=== PATIENT | female | born 1955 | race Caucasian/White ===

== ENCOUNTER → 2018-10-18 | Outpatient (CLI) | payer BC ==
--- NOTE | 2018-10-20 12:55 | XCELERA REPORT ---
[address] [address] Lower Extremity Arterial Evaluation Name: ALLEN GALLARDO Age: 63 yrs Gender: Female : 1955 Patient Status: Outpatient Patient Location: Study Date: 10/18/2018 02:50 PM Procedure: A color flow and duplex scan of the lower extremity arteries was performed bilaterally with velocity and waveform anaylsis. Ankle brachial indicies performed. Reason For Study: PVD, FOOT PAIN Ordering Physician: KRISTOFER SMITH Performed By: Stephen Daniel Measurements and Calculations Right Left TIMBER RIDER PSV 369.3 148.5 cm/sec Prox PFA PSV -293.9 -140.6cm/sec Prox SFA PSV 155.4 131.4 cm/sec Mid SFA PSV -26.3 -139.0cm/sec Dist SFA PSV -28.9 -226.7cm/sec Prox Pop A PSV 89.9 208.2 cm/sec Dist Pop A PSV -78.3 -91.3 cm/sec Prox KULWANT PSV 28.3 cm/sec Dist KULWANT PSV 31.2 18.5 cm/sec Dist LOTUS NOTES ADMINISTRATOR PSV 44.3 53.7 cm/sec Jesse Pedis PSV -38.1 -13.2 cm/sec Right Side Arterial Evaluation Normal velocity and triphasic waveforms noted in the Common Femoral artery. Very high velocity at the bifurcation, high in the Deep Femoral. Triphasic, normal velocity, no broadening in proximal Femoral with monophasic , spectrally broadened waveform with severely reduced velocity in distal Femoral. . Monophasic with low normal velocity, severe spectral broadening in the Popliteal to infrageniculate vessels. Ankle Brachial index 0.56. PPG's show no attenuation in 2nd and 3rd digits, mild attenuation inn digits 1, 4 and 5. Waveforms barely multiphasic.. Left Side Arterial Evaluation Normal velocity and triphasic waveforms noted in the Common Femoral artery. . Biphasic with normal velocity, mild spectral broadening in the Femoral to Popliteal. Similar with low velocity in infrageniculate vessels. Dorsalis Pedis has trickle flow. Ankle Brachial index 0.74. PPG's show no attenuation.. Waveforms barely multiphasic.. Interpretation Summary Complex, multilevel atherosclerotic impact. On the right, severe, with focal stenosis in the Femoral bifurcation, suggested in the mid Femoral as well. On the left, stenosis in the Femoral artery. Moderately severe hemodynamic effects. MARU's indicate Moderate obstructive disease on the right, mild on the left. PPG's show mild to moderate with individual digits more affected, on the right, as noted. All findings are described, in the resting state. : KRISTOFER SMITH > Hi Gallardo
== END ==
LOC: SP 14:38
PROVIDERS: ATTEND Podiatrist Foot Surgery
DX: I73.9 Peripheral vascular disease, unspecified (principal)
CPT/HCPCS: 93922; 93925